=== PATIENT | male | born 1945 | race Caucasian/White ===

== ENCOUNTER 2016-11-15 10:41 | Outpatient (CLI) | payer OTHER ==
--- NOTE | 2016-11-15 11:42 | DIAGNOSTIC IMAGING REPORT ---
PROCEDURE: US VENOUS - RIGHT EXT INDICATION: RT LEG EDEMA,R/O DVT TECHNIQUE: Duplex sonography of the deep venous system in the right lower extremity was performed. Compression and augmentation techniques were used. COMPARISON: None. FINDINGS: Extensive hypoechoic thrombus from the popliteal to the proximal superficial femoral vein. Common femoral and calf veins are patent. IMPRESSION: 1. Occlusive DVT from the right popliteal to the proximal superficial femoral veins 2. Results discussed with Kayla England.
--- NOTE | 2016-11-15 12:14 | DIAGNOSTIC IMAGING REPORT ---
PROCEDURE: CT ABD/PELVIS WITH CONTRAST CLINICAL INDICATION: Abdominal bloating, initial encounter. TECHNIQUE: 125 ml of Isovue 300 were injected intravenously and axial images were obtained of the entire abdomen and pelvis with sagittal and coronal reformations. COMPARISON: Abdominal ultrasound 10/02/[address] chest 10/02/2011. FINDINGS: ABDOMEN: There are several stable 2 mm right middle lobe peripheral nodules. Left pleural, pericardial and bilateral diaphragmatic calcifications. Normal heart size. Hepatic steatosis. The gallbladder, pancreas, spleen (splenule), adrenal glands and kidneys are normal. Mild atherosclerosis. 1.5 cm fat-containing umbilical hernia. PELVIS: Enlarged prostate (5.5 cm). Normal bladder. No pelvic mass, inflammatory changes or free fluid. Small fat-containing right inguinal hernia. Thrombus present in the proximal right superficial femoral vein. Mild to moderate degenerative changes of the spine. IMPRESSION: 1. Calcified pleural, pericardial and diaphragmatic plaques consistent with asbestosis. Recommend chest CT. 2. Hepatic steatosis 3. Enlarged prostate 4. Right proximal superficial femoral vein thrombus 5. Results discussed with Kayla England All CT scans at this facility use dose modulation, iterative reconstruction, and/or weight-based dosing when appropriate to reduce radiation dose to as low as reasonably achievable.
--- NOTE | 2016-11-15 13:11 | DIAGNOSTIC IMAGING REPORT ---
PROCEDURE: CT THORAX WITHOUT CONTRAST INDICATION: Asbestosis and right leg DVT. Initial encounter. TECHNIQUE: Noncontrast axial images were obtained of the chest with coronal and sagittal reformations. COMPARISON: CT chest 10/02/2011. FINDINGS: 2.6 x 1.6 cm superior segment left lower lobe spiculated opacity with central radiolucency. New 7 mm nodule in the right major fissure. Minimal progression of 10 mm peripheral left upper lobe nodule. No change in several right lung 2-5 mm nodules. Right apical parenchymal changes. Calcified bilateral pleural, pericardial and diaphragmatic plaques. No adenopathy or effusion. Mild atherosclerosis of the aorta. Coronary atherosclerosis. Heart size is normal. Hepatic steatosis. Mild to moderate degenerative changes of the spine. IMPRESSION: 1. 2.6 x 1.6 cm superior segment left lower lobe spiculated opacity with central radiolucency. In the context of asbestosis and acute DVT, finding is suspicious for a neoplasm with developing central necrosis. In the absence of pulmonary symptoms, infectious process is less likely. Recommend CT guided biopsy. 2. New 7 mm right major fissure nodule, possible metastasis versus post inflammatory. There are several stable subcentimeter right lung nodules. 3. Right apical parenchymal changes suggestive of scarring but developing mass is a consideration. 4. Asbestosis 5. Results discussed with Kayla England.
== END 2016-11-15 23:00 ==
LOC: US SRH 10:41
DX: I82.431 Acute embolism and thrombosis of right popliteal vein (principal); I82.411 Acute embolism and thrombosis of right femoral vein; J94.8 Other specified pleural conditions; K76.0 Fatty (change of) liver, not elsewhere classified; N40.0 Benign prostatic hyperplasia without lower urinary tract symptoms; J61 Pneumoconiosis due to asbestos and other mineral fibers

== ENCOUNTER 2016-12-12 10:54 | Outpatient (CLI) | payer OTHER ==
--- NOTE | 2016-12-12 18:58 | DIAGNOSTIC IMAGING REPORT ---
PROCEDURE: CT LUNG/MEDIASTINUM BIOPSY INDICATION: RT LUNG NODULES TECHNIQUE: Written informed consent was obtained from the patient prior to the procedure. Risks discussed included but were not limited to bleeding, infection, injury to adjacent structures, pain, pneumothorax, nondiagnostic sample, and allergic reaction. It was agreed to proceed. Prone position on the CT scanner. Preliminary CT imaging demonstrated spiculated nodule abutting the pleura with small central cavitation. The nodule measures approximately 2.9 cm in greatest diameter. Calcific pleural plaquing is also seen lateral to the mass. An appropriate skin entry site was chosen and marked. The skin was prepped and draped in the usual sterile fashion. Skin and subcutaneous tissue was anesthetized thoroughly with 1% lidocaine. Under intermittent CT guidance, a 19 gauge needle was directed into the lung mass. Through this, four passes were made with a 20-gauge [facility] biopsy device. Tiny black fragments of tissue were acquired. Samples were placed into formalin. A tiny, contained pneumothorax was identified during biopsy. It measured about 2.7 cm in length by about 5 mm in maximal width. The patient remained asymptomatic. Intermittent CT images were acquired documenting the needle in position within the lung mass. Sample adequacy was assessed. The needle was removed, hemostasis was achieved, the skin was cleansed, and a sterile bandage was applied. Post procedure CT imaging through the area demonstrated no enlargement of tiny contained pneumothorax. The patient was helped off the table. He recovered in the left decubitus position for 1 hour. Post procedure chest x-ray demonstrated no progression of pneumothorax. The patient left the radiology department in stable condition with standard post procedure instructions. The patient tolerated the procedure well and no other complications were noted. COMPARISON: CT chest performed the same day as well as CT chest from 11/05/2016 FINDINGS: Small spiculated nodule in the posterolateral left lower lobe with central cavitation is unchanged compared to prior studies. IMPRESSION: 1. Successful CT-guided left lung nodule biopsy. 2. Tiny, contained pneumothorax immediately adjacent to the biopsied nodule. No significant enlargement 1 hour post-biopsy. 3. Pathology is pending.
--- NOTE | 2016-12-12 19:00 | DIAGNOSTIC IMAGING REPORT ---
PROCEDURE: XR CHEST 1 VIEW INDICATION: 1 HR POST LEFT LUNG BX AT 1500 TECHNIQUE: Single view chest. 1500 hours COMPARISON: Lung biopsy images performed the same day. FINDINGS: Cardiomediastinal contour and central vessels are within normal limits. Left perihilar nodule measuring about 15 mm demonstrates a trace amount of surrounding post-biopsy hemorrhage. No evidence of pneumothorax. Circumscribed 9 mm nodule in the left upper lobe is chronic. The lungs are mildly hyperinflated with slight coarsening of the interstitium consistent with mild emphysema. Osseous structures are intact. IMPRESSION: 1. No evidence of significant pneumothorax 1 hour post left lung biopsy. 2. Biopsied left perihilar lung nodule demonstrates trace post biopsy hemorrhage. 3. Left upper lobe lung nodules chronic and benign. 4. Changes of mild emphysema.
--- NOTE | 2016-12-12 19:25 | DIAGNOSTIC IMAGING REPORT ---
PROCEDURE: CT THORAX WITHOUT CONTRAST INDICATION: RECHECK NODULE PRE BIOPSY TECHNIQUE: Noncontrast axial images were obtained of the chest with coronal and sagittal reformations. COMPARISON: 11/15/2016 FINDINGS: Multinodular, spiculated solid lung mass with central cavitation in the superior segment posterolateral left lower lobe abutting the pleura measures about 2.7 x 1.6 cm , stable since the previous study. There is tethering of the mass to the pleural and adjacent pleural thickening. Coarse linear calcification of the pleura is also seen adjacent to the mass as well as elsewhere (anterior left, and along the right diaphragm), consistent with asbestos exposure. Multiple tiny right middle lobe and superior segment right lower lobe lung nodules are again noted. Smoothly marginated 9 mm anterior left upper lobe nodule is chronic. Parenchymal findings are superimposed on a background of mild bilateral upper lobe paraseptal emphysematous changes and right apical pleural plaquing. Heavy coronary calcification and the left pericardial calcification. Normal sized heart. No new pericardial effusion. No new pleural effusion. Mildly prominent, but not bulky, nonspecific mediastinal lymph nodes are unchanged. No new supraclavicular or axillary adenopathy. No suspicious osseous lesions. Large anterior endplate spurs in the mid thoracic spine. The upper abdomen is normal. IMPRESSION: 1. Stable spiculated 2.7 cm left lower lobe cavitary nodule, targeted for biopsy. 2. No change to multiple tiny bilateral subpleural lung nodules. Follow-up chest CT is recommended. 3. Mildly prominent mediastinal lymph nodes are unchanged, nonspecific. 4. Mild emphysema. 5. Heavy coronary calcification. 6. Asbestosis.
== END 2016-12-12 23:00 ==
LOC: CT SRH 10:54
PROC: BW241ZZ Computerized Tomography (CT Scan) of Chest and Abdomen using Low Osmolar Contrast (ICD-10-PCS; principal; 2016-12-12)
PROC: 0BBL3ZX Excision of Left Lung, Percutaneous Approach, Diagnostic (ICD-10-PCS; 2016-12-12)
DX: J98.4 Other disorders of lung (principal); J43.9 Emphysema, unspecified
CPT/HCPCS: 82305; 82445; 90074; 94060; 95059

== ENCOUNTER 2017-01-10 08:47 | Outpatient (CLI) | payer OTHER ==
--- NOTE | 2017-01-10 14:08 | DIAGNOSTIC IMAGING REPORT ---
PROCEDURE: NM SPLIT PULMONARY PERFUSION INDICATION: LUNG CA TECHNIQUE: 5.7 mCi of technetium 99m MAA administered. COMPARISON: Chest x-ray 12/12/2016. FINDINGS: Small perfusion defect in the right apex. Differential count: Right lung 56.2%, left lung 43.8%. IMPRESSION: 1. Differential perfusion: Right lung 56.2%, left lung 43.8%.
== END 2017-01-10 23:00 | disposition home or self-care (01) ==
LOC: NM SRH 08:47
DX: C34.90 Malignant neoplasm of unspecified part of unspecified bronchus or lung (principal)

== ENCOUNTER 2017-02-03 16:17 | Day surgery (SDC) | payer OTHER ==
[~2017-02-03] VITALS: Ht 176.5 cm; Wt 88.8 kg
--- NOTE | 2017-02-03 14:38 | Provider's Discharge Care Plan ---
Problem, Goal, Plan Problem List 1. Lung cancer
--- NOTE | 2017-02-03 14:38 | Provider's Discharge Care Plan ---
Problem, Goal, Plan Problem List 1. Lung cancer
[2017-02-03 15:25] VITALS: BP 167/92
[2017-02-03 15:37] VITALS: BP 166/94
[2017-02-03 15:57] VITALS: BP 159/83
[2017-02-03 16:15] VITALS: BP 154/76
[~2017-02-03 16:17] MED LIST: NORCO1 TA1 PO; XARELTO20 MG PO
[2017-02-20] MEDS ORDERED: ALEVE220 MG PO (11:10)
== END 2017-02-03 16:47 | disposition home or self-care (01) ==
LOC: SDC SRH 16:17 → CC SRH 16:19 → SDC SRH 16:47
PROVIDERS: Surgery
PROC: 07B74ZX Excision of Thorax Lymphatic, Percutaneous Endoscopic Approach, Diagnostic (ICD-10-PCS; principal; 2017-02-03 11:30)
DX: R59.0 Localized enlarged lymph nodes (principal); C34.32 Malignant neoplasm of lower lobe, left bronchus or lung; J44.9 Chronic obstructive pulmonary disease, unspecified; Z87.891 Personal history of nicotine dependence